=== PATIENT | female | born 1990 | race Caucasian/White ===

== ENCOUNTER 2019-04-01 10:25 | Observation (INO) ==
--- NOTE | 2019-04-01 10:37 | Emergency Department Note ---
ED Disposition Clinical Impression: Acute appendicitis Qualifiers: Acute appendicitis type: with localized peritonitis Appendicitis gangrene presence: without gangrene Appendicitis perforation presence: without perforation Appendicitis abscess presence: without abscess Qualified Code(s): K35.30 - Acute appendicitis with localized peritonitis, without perforation or gangrene Disposition: Still a Patient Condition on Discharge: Fair Referrals: Provider,Referral, [Primary Care Provider] - - Critical Care Critical Care Time: No Attestation: On , the high probability of a clinically significant, sudden or life threatening deterioration of the following system(s) required my full and direct attention, intervention and personal management. The time I documented below is in addition to time spent performing reported procedures but includes the following listed in this critical care notation. Medical Decision Making - Nathan Inquiry Pt receiving controlled substance: No Vital Signs: 04/01/19 10:34 Temperature 98.0 F Temperature Source Oral Pulse Rate [Right Radial] 71 Respiratory Rate 18 Blood Pressure [Right Arm] 135/72 Blood Pressure Mean [Right Arm] 93 Blood Pressure Source [Right Arm] Automatic Cuff Blood Pressure Position [Right Arm] Sitting 02 Sat by Pulse Oximetry 99 Oxygen Delivery Method Room Air - Lab Data Lab Results 04/01/19 10:55: Urine Color Yellow, Urine Appearance Clear, Urine pH 6.5, Ur Specific [place] 1.020, Urine Protein Negative, Urine Glucose (UA) Negative, Urine Ketones Negative, Urine Blood Trace-i, Urine Nitrate Negative, Urine Bilirubin Negative, Urine Urobilinogen 0.2, Ur Leukocyte Esterase Trace, Urine RBC Occasional, Urine WBC 5-10, Ur Squamous Epith Cells 3-5, Urine Bacteria 3+ 04/01/19 10:55: WBC 19.3 H, RBC 4.35, Hgb 13.2, Hct 37.9, MCV 87.2, MCH 30.2, MCHC 34.7, RDW 12.9, Plt Count 226, MPV 8.4, Neut % (Auto) 88.8 H, Lymph % (Auto) 5.9 L, [place] % (Auto) 5.0, Eos % (Auto) 0.2, Baso % (Auto) 0.1, Neut # (Auto) 17.1 H, Lymph # (Auto) 1.1, [place] # (Auto) 1.0, Eos # (Auto) 0.0, Baso # (Auto) 0.0, Total Counted 100, Neutrophils % (Manual) 90 H, Lymphocytes % (Manual) 9 L, Monocytes % (Manual) 1 L, Platelet Estimate Normal, RBC Morphology Normal 04/01/19 10:55: Sodium 139, Potassium 3.6, Chloride 102, Carbon Dioxide 26, Anion Gap 14.6, BUN 8, Creatinine 0.82, Estimated Creat Clear 119, Estimated GFR 84, Est GFR ( Amer) 102, Glucose 108 H, Calcium 8.8, Total Bilirubin 0.2, AST 11 L, ALT 15, Alkaline Phosphatase 74, Total Protein 7.5, Albumin 4.1, Globulin 3.4 H, Albumin/Globulin Ratio 1.2, Lipase 84 04/01/19 10:55: Serum HCG, Qual Negative Result diagrams: 04/01/19 10:55 04/01/19 10:55 Orders (Tests/Meds): ED MEDICATIONS Discontinued Medications Generic Name Dose Route Start Last Admin Trade Name Freq PRN Reason Stop Dose Admin Ioversol 75 ml 04/01/19 11:39 04/01/19 11:40 Rad-Optiray 350 100ml Vial IV 04/01/19 11:40 75 ml ONCE ONE Administration Protocol Morphine Sulfate 4 mg 04/01/19 12:15 Morphine 4mg/Ml Syringe IV 04/01/19 12:16 ONCE ONE Ondansetron HCl 4 mg 04/01/19 12:15 Zofran 4mg/2ml Vial IV 04/01/19 12:16 ONCE ONE Sodium Chloride 1,000 ml 04/01/19 10:46 04/01/19 11:03 Sod Chlor 0.9% 1000ml Bag IV 04/01/19 10:47 1,000 ml BOLUS ONE Administration Sodium Chloride 10 ml 04/01/19 11:39 04/01/19 11:40 Rad-Saline Flush 10ml Syringe IV 04/01/19 11:40 10 ml ONCE ONE Administration ORDERS Category Date Time Status Urine Culture Stat Micro 04/01/19 10:55 Received - CT Data CT Scan: Abdomen, Pelvis Time Received: 12:[address] Reviewed: Yes: I have viewed the radiologist's interpretation Findings Narrative: FINDINGS: Lung bases are clear. The liver, gallbladder, spleen, adrenal glands, and pancreas have an unremarkable appearance. There is mild thickening of the 2nd portion of the duodenum which is nonspecific and could be due to nondistention or mild duodenitis. A cluster of small stones is noted in the lower pole of the right kidney. In combination, the cluster measures 10 x 4 mm. There is cortical scarring peripheral to this cluster of stones. There is mild ectasia of the right renal collecting system and to lesser degree on the left but no definite ureteral calculus is evident. This could be related to patient's hydration status.. No ureteral calculi or no bladder calculi are apparent. There is mild distention of the proximal aspect of the appendix which is fluid-filled and measures up to 9 mm in diameter. The distal aspect of the appendix is also slightly prominent at 7 mm with questionable thickening of the wall and. There is some very minimal haziness of the periappendiceal fat. Cannot exclude the possibility of mild appendicitis. No abscess or perforation is evident. No pelvic mass or abnormal fluid collection is evident. No acute bony anomalies. IMPRESSION: Mild distention of the proximal aspect of the appendix which is fluid-filled and minimal prominence of the distal aspect of the appendix with minimal haziness of the periappendiceal fat. Mild or early acute appendicitis is a consideration. Please correlate with clinical parameters. No abscess or perforation. Dictated by: Fred Mckinney MD 04/01/2019 12:03 Electronically signed by Fred Mckinney MD in [place] 04/01/2019 12:03 - Physician Consults Physician Consulted: Manju Time: 12:21 Reason -: Surgical Eval/Care Comment/Response: he will come to ED to see patient General Adult HPI - General Stated complaint: stomach pain Time Seen by Provider: 04/01/19 10:37 - History of Present Illness HPI narrative: States that she awakened this morning at 6:45 AM, awakened by pain in her abdomen that was initially epigastric and burning but now has moved to her right lower quadrant. Had a little bit of back pain earlier, but that resolved. 2 episodes of vomiting, no diarrhea. No urinary symptoms. No fever. No previous similar pain. No history of abdominal surgeries. She has a Nexplanon implant, denies . - Related Data Home Medications Medication Instructions Recorded Confirmed etonogestrel 68 mg subdermal SUBDERMAL each 09/09/18 09/09/18 implant Allergies Allergy/AdvReac Type Severity Reaction Status Date / Time No Known Allergies Allergy Verified 09/09/18 09:47 [facility] History - Hepatitis A Screen Attestation statement:: This patient has been screened for Hepatitis A risk factors. I have reviewed the patient's past medical history: Yes Medical History: Denies:: Anxiety, Asthma, Depression - Social History Smoking Status: Former smoker Alcohol Intake: current Alcohol Intake Frequency:: holidays/special occasions only Substance Use Type: former substance user Occupational Status: unemployed - Psychiatric History Pschychiatric History:: Denies:: Anxiety, Depression ROS Obtained: Yes All systems reviewed & no additional complaints - Constitutional Constitutional: Denies fever(s) - Cardiovascular Cardiovascular: Denies chest pain - Respiratory Respiratory: No dyspnea - Gastrointestinal Gastrointestingal: Reports: abdominal pain, nausea, vomiting. Denies: diarrhea - Genitourinary Female Genitourinary: Denies difficulty voiding, Reports flank pain (resolved) Physical Exam - General General appearance: alert, in no apparent distress - Head Head exam: atraumatic, normocephalic - Eye Eye exam: Present: normal appearance, EOMI - ENT ENT exam: Present: mucous membranes moist - Neck Neck exam: Present: normal inspection, trachea midline - Chest Chest inspection: Present: normal inspection, symmetric chest wall rise - Respiratory Respiratory exam: Present: normal lung sounds bilaterally. Absent: respiratory distress - Cardiovascular Cardiovascular exam: Present: regular rate, normal rhythm, normal heart sounds - Abdominal Exam Abdominal exam: Present: soft, tenderness, normal bowel sounds, Rovsing's sign, tenderness at McBurney's Point. Absent: distention, guarding, rebound, rigidity Comment: generalized tenderness, most tender RLQ. - Extremities Exam Extremities exam: Present: normal inspection - Back Exam Back exam: Absent: CVA tenderness (R), CVA tenderness (L) - Neurological Exam Neurological exam: Present: alert, oriented X3 - Psychiatric Psychiatric exam: Present: normal affect, normal mood - Skin Skin exam: Present: warm, dry
[2019-04-01 11:01] LABS: Microscopic, Urine URINE MICROSCOPIC (MICROSCOPIC)
[2019-04-01 11:05] LABS: Basophils % 0.1 % (0.1-2.0); Eosinophils % 0.2 % (0.1-12.0); Hematocrit 37.9 % (37.0-47.0); Hemoglobin 13.2 g/dL (12.2-16.2); Lymphocytes # 1.1 K/mm3 (0.7-4.5); Lymphocytes % 5.9 % (10-50); Mean Corpuscular HGB Conc 34.7 g/dL (31.8-35.4); Mean Corpuscular Volume 87.2 fl (81-99); Mean Platelet Volume 8.4 fl (7.4-10.4); Neutrophils # 17.1 K/mm3 (1.8-7.8); Neutrophils % 88.8 % (37.0-80.0); Platelet Count 226 K/mm3 (142-424); Red Blood Count 4.35 M/mm3 (4.20-5.40); Red Cell Distribution Width 12.9 % (11.5-17.5); White Blood Count 19.3 K/mm3 (4.8-10.8)
[2019-04-01 11:07] LABS: Appearance,Urine CLEAR (Clear); Bilirubin,Urine Negative (Negative); Blood, Urine TRACE-I (Negative); Color,Urine YELLOW (Yellow); Glucose,Urine (UA) Negative (Negative); Ketones,Urine Negative (Negative); Leukocyte Esterase,Urine TRACE (Negative); PH,Urine 6.5 (5.0-8.5); Protein,Urine Negative (Negative); Urobilinogen,Urine 0.2 EU/dl (0.2)
[2019-04-01 11:15] LABS: Albumin Level 4.1 gm/dL (3.4-5.0); Albumin/Globulin Ratio 1.2 (1.1-1.8); Anion Gap 14.6 mEq/L (5-15); Bilirubin,Total 0.2 mg/dL (0.2-1.0); Calcium 8.8 mg/dL (8.5-10.1); Globulin 3.4 gm/dl (1.3-3.2); Total Protein,Serum 7.5 gm/dL (6.4-8.2)
[2019-04-01 11:22] LABS: Bacteria,Urine 3+ /lpf; RBC,Urine Occasional #/hpf (0-3)
[2019-04-01 11:26] LABS: Lymphocytes % 9 % (10-50); Monocytes % 1 % (2-9); Neutrophils % 90 % (42-76); RBC Morphology Normal; Total Cells Counted 100
--- NOTE | 2019-04-01 13:20 | History & Physical Report ---
HPI HPI: Chief complaint: Abdominal pain Patient is a pleasant 28-year-old white female who was in her usual state of health until approximately 6:45 AM this morning at which time she experienced onset of epigastric pain. She did have some associated nausea. Her pain localized to the right lower quadrant and was sharp and severe and worse with movement. She presented to the emergency department where she was seen and evaluated. She underwent CT scan which revealed findings consistent with acute appendicitis. [facility] History Medical History: Denies:: Anxiety, Asthma, Depression, Diabetes Mellitus Type 1, Diabetes Mellitus Type 2 *Have you ever received a pneumonia vaccine?: No *Have you received a flu vaccine this season?: No - *Social History Smoking Status: Current every day smoker Tobacco Type: e-cigarettes # Packs/Day (cigarettes): 0 Alcohol Intake: never Alcohol Intake Frequency:: holidays/special occasions only Substance Use Type: former substance user *Occupational Status:: unemployed *Travel in the last 8 weeks: None - Psychiatric History Pschychiatric History:: Denies:: Anxiety, Depression Family Hx:: No significant family history Review of Systems - Review of Systems Review of systems:: pertinent systems reviewed and negative unless documented below Meds Home Medications Medication Instructions Recorded Confirmed Type etonogestrel 68 mg subdermal SUBDERMAL each 09/09/18 09/09/18 History implant Allergies Allergy/AdvReac Type Severity Reaction Status Date / Time No Known Allergies Allergy Verified 09/09/18 09:47 Exam Vital signs and Labs for Last 24 Hours: Temp Pulse Resp BP Pulse Ox 98.0 F 78 18 152/72 H 98 04/01/19 12:56 04/01/19 12:56 04/01/19 12:56 04/01/19 12:56 04/01/19 12:27 Laboratory Results - last 24 hr 04/01/19 10:55: Urine Color Yellow, Urine Appearance Clear, Urine pH 6.5, Ur Specific [place] 1.020, Urine Protein Negative, Urine Glucose (UA) Negative, Urine Ketones Negative, Urine Blood Trace-i, Urine Nitrate Negative, Urine Bilirubin Negative, Urine Urobilinogen 0.2, Ur Leukocyte Esterase Trace, Urine RBC Occasional, Urine WBC 5-10, Ur Squamous Epith Cells 3-5, Urine Bacteria 3+ 04/01/19 10:55: WBC 19.3 H, RBC 4.35, Hgb 13.2, Hct 37.9, MCV 87.2, MCH 30.2, MCHC 34.7, RDW 12.9, Plt Count 226, MPV 8.4, Neut % (Auto) 88.8 H, Lymph % (Auto) 5.9 L, [place] % (Auto) 5.0, Eos % (Auto) 0.2, Baso % (Auto) 0.1, Neut # (Auto) 17.1 H, Lymph # (Auto) 1.1, [place] # (Auto) 1.0, Eos # (Auto) 0.0, Baso # (Auto) 0.0, Total Counted 100, Neutrophils % (Manual) 90 H, Lymphocytes % (Manual) 9 L, Monocytes % (Manual) 1 L, Platelet Estimate Normal, RBC Morphology Normal 04/01/19 10:55: Sodium 139, Potassium 3.6, Chloride 102, Carbon Dioxide 26, Anion Gap 14.6, BUN 8, Creatinine 0.82, Estimated Creat Clear 119, Estimated GFR 84, Est GFR ( Amer) 102, Glucose 108 H, Calcium 8.8, Total Bilirubin 0.2, AST 11 L, ALT 15, Alkaline Phosphatase 74, Total Protein 7.5, Albumin 4.1, Globulin 3.4 H, Albumin/Globulin Ratio 1.2, Lipase 84 04/01/19 10:55: Serum HCG, Qual Negative I & O for Last 24 hours: Intake & Output 03/30/19 03/31/19 04/01/19 04/02/19 11:59 11:59 11:59 11:59 Intake Total 1000 / 1000 Balance 1000 / 1000 Weight 160 lb - *Routine HEENT Exam Head: Present: normocephalic Eye: Present: EOMI, PERRL ENT: Present: mucous membranes moist - *Routine Neck Exam Present: supple. Absent: lymphadenopathy - *Routine Respiratory Exam Present: CTA bilaterally - *Routine Cardiovascular Exam Present: RRR - *Routine Abdominal Exam Present: soft, normoactive bowel sounds, tenderness Comments: She has tenderness with some voluntary guarding in the right lower quadrant - *Routine Extremities Exam Absent: cyanosis, clubbing, edema - *Routine Skin Exam Present: warm. Absent: rash - *Routine Neurological Exam Present: alert, oriented X3 - Detailed Eye Exam Eyelids: Left normal inspection Results - Results Lab Results Last 24 Hours:: Laboratory Results - last 24 hr 04/01/19 10:55: Urine Color Yellow, Urine Appearance Clear, Urine pH 6.5, Ur Specific [place] 1.020, Urine Protein Negative, Urine Glucose (UA) Negative, Urine Ketones Negative, Urine Blood Trace-i, Urine Nitrate Negative, Urine Bilirubin Negative, Urine Urobilinogen 0.2, Ur Leukocyte Esterase Trace, Urine RBC Occasional, Urine WBC 5-10, Ur Squamous Epith Cells 3-5, Urine Bacteria 3+ 04/01/19 10:55: WBC 19.3 H, RBC 4.35, Hgb 13.2, Hct 37.9, MCV 87.2, MCH 30.2, MCHC 34.7, RDW 12.9, Plt Count 226, MPV 8.4, Neut % (Auto) 88.8 H, Lymph % (Auto) 5.9 L, [place] % (Auto) 5.0, Eos % (Auto) 0.2, Baso % (Auto) 0.1, Neut # (Auto) 17.1 H, Lymph # (Auto) 1.1, [place] # (Auto) 1.0, Eos # (Auto) 0.0, Baso # (Auto) 0.0, Total Counted 100, Neutrophils % (Manual) 90 H, Lymphocytes % (Manual) 9 L, Monocytes % (Manual) 1 L, Platelet Estimate Normal, RBC Morphology Normal 04/01/19 10:55: Sodium 139, Potassium 3.6, Chloride 102, Carbon Dioxide 26, Anion Gap 14.6, BUN 8, Creatinine 0.82, Estimated Creat Clear 119, Estimated GFR 84, Est GFR ( Amer) 102, Glucose 108 H, Calcium 8.8, Total Bilirubin 0.2, AST 11 L, ALT 15, Alkaline Phosphatase 74, Total Protein 7.5, Albumin 4.1, Globulin 3.4 H, Albumin/Globulin Ratio 1.2, Lipase 84 04/01/19 10:55: Serum HCG, Qual Negative Assessment and Plan - Assessment and plan all Dx Assessment and Plan for all problems:: Plan to make arrangements for urgent appendectomy.
--- NOTE | 2019-04-01 14:49 | Operative Note ---
Date of procedure: 04/01/19 Pre-op Diagnosis:: Acute appendicitis Post-op Diagnosis:: Same Procedure performed:: Laparoscopic appendectomy Surgeon:: Mono Nunes MD AUTOMATION TECHNOLOGIST:: Solitario Serra Anesthesia: YESSI Estimated blood loss (mL): 15 Clinical Note:: Patient is a pleasant 28-year-old white female who was in her usual state of health until approximately 6:45 AM this morning at which time she experienced onset of epigastric pain. She did have some associated nausea. Her pain localized to the right lower quadrant and was sharp and severe and worse with movement. She presented to the emergency department where she was seen and evaluated. She underwent CT scan which revealed findings consistent with acute appendicitis. Operative findings:: She had an acutely inflamed indurated but nonsuppurative appendicitis. The terminal ileum was chronically adherent to the mesoappendix. Operative note:: Consent was obtained and patient was taken to the operating room. She was given preoperative intravenous antibiotics. In the operating room she was placed in a supine position. General anesthesia was induced via endotracheal tube. Cleary catheter was placed. Her abdomen was prepped and draped in the standard surgical fashion. Subumbilical skin incision was made and while performing a bdominal wall lift Veress needle was inserted. CO2 pneumoperitoneum was achieved to 15 mmHg. 12 mm optical trocar was inserted at the umbilicus. Intraperitoneal contents were visualized. 5 mm trocar was inserted in the suprapubic location. Additional 5 mm trocar was inserted in the right upper abdomen. She was positioned in the left side down. Appendix was identified. It was grasped with an endoscopic Jacklyn. The appendix was moderately inflamed characterized by induration and thickening with some erythema. Terminal ileum was somewhat adherent to the mesoappendix. Careful dissection was carried out dividing the mesoappendix with care taken to coagulate the appendiceal artery in the process. Meticulous care was taken when dissecting the adherent to terminal ileum from the mesoappendix. Dissection was carried down to the appendiceal base which was relatively uninflamed. Appendix was divided at its base with an endoscopic FRANCISCO linear cutting stapling device. The appendix was placed within an Endo Catch retrieval device and removed from the peritoneal cavity via the umbilical trocar site. Limited irrigation was carried out of the pericecal region and pelvis. There was good hemostasis. Trochars were then removed as CO2 pneumoperitoneum was evacuated. Fascia at the umbilicus was closed with 0 Vicryl [id number] suture. Local anesthetic was infiltrated. Skin i ncisions were closed with 4-0 Monocryl in a subcuticular fashion. Steri-Strips and dressings were applied. Condition: stable Disposition: PACU Specimens:: Appendix Complications:: None immediately apparent
--- NOTE | 2019-04-01 15:00 | Progress Note ---
[facility] Anesthesia Checklist - Patient Identification Patient Identification: Arm Band, Verbal (Name & ) - Structural Data Admitted From: Emergency Dept Planned Operative Procedure/s: lap appy Consent for Planned Operative Procedure(s) Verified: Yes Verified Documents: History and Physical - NPO Status Verified Time NPO: 00:00 - Additional verifications Patient : No Anesthesia Reactions: No Hx Blood Transfusions: No Blood Transfusion Reaction: No Cephalosporin Allergy: No Previous Colonoscopy: No - Cardiovascular Assessment Heart Sounds: S1 & S2 Pulse Strength: Baseline Pulse Rhythm: Regular Peripheral Edema: No - Airway Assessment C-Spine Mobility Assessed: Yes TMJ Mobility Assessed: Yes Dentition: Good Dentition - Neurological Assessment Level of Consciousness: Awake, Alert, Appropriate Hx Seizures: No Numbness or tingling in extremities: No - Anesthesia Plan Anesthesia Risk discussed: Yes ASA Class: II Anesthesia Type: General [facility] History Medical History: Denies:: Anxiety, Asthma, Depression, Diabetes Mellitus Type 1, Diabetes Mellitus Type 2 *Have you ever received a pneumonia vaccine?: No *Have you received a flu vaccine this season?: No Anesthesia experience/problems:: none - *Social History Smoking Status: Current every day smoker Tobacco Type: e-cigarettes # Packs/Day (cigarettes): 0 Alcohol Intake: never Alcohol Intake Frequency:: holidays/special occasions only Substance Use Type: former substance user *Occupational Status:: unemployed *Travel in the last 8 weeks: None - Psychiatric History Pschychiatric History:: Denies:: Anxiety, Depression Family Hx:: No significant family history
--- NOTE | 2019-04-01 15:01 | Progress Note ---
[facility] Anesthesia Record Part I Intake, IV Amount: 400 Estimated blood loss (mL): 10 Urine output (mL): 150 Blood Products used (#): none Blood Pressure: 132/95 SaO2: 100 Pulse Rate: 75 Respiratory Rate: 20 Temperature: 97.4 F Patient is:: Awake, Stable Stable to PACU at:: 14:57
--- NOTE | 2019-04-01 15:02 | Progress Note ---
[facility] Anesthesia Record Part II Discharge Time: 15:27 Destination: Medical Surgical Department PACU nurse assessment reviewed?: Yes Patient Condition:: Good Anesthesia Complications:: None Swallowing reflex intact?: Yes Cyanosis?: No
[2019-04-02 06:23] LABS: Basophils % 0.1 % (0.1-2.0); Hematocrit 33.2 % (37.0-47.0); Lymphocytes # 1.9 K/mm3 (0.7-4.5); Lymphocytes % 15.4 % (10-50); Mean Corpuscular HGB Conc 33.7 g/dL (31.8-35.4); Mean Corpuscular Volume 88.8 fl (81-99); Mean Platelet Volume 8.6 fl (7.4-10.4); Monocytes # 0.7 K/mm3 (0.1-1.0); Monocytes % 6.2 % (1.7-9.3); Neutrophils # 9.3 K/mm3 (1.8-7.8); Neutrophils % 78.1 % (37.0-80.0); Platelet Count 183 K/mm3 (142-424); Red Blood Count 3.74 M/mm3 (4.20-5.40); Red Cell Distribution Width 12.7 % (11.5-17.5); White Blood Count 11.9 K/mm3 (4.8-10.8)
--- NOTE | 2019-04-02 06:54 | Progress Note ---
Subjective Patient reports: feels better Exam Vital signs and Labs for Last 24 Hours: Temp Pulse Resp BP Pulse Ox 98.2 F 71 16 109/60 L 96 04/02/19 04:27 04/02/19 04:27 04/02/19 04:27 04/02/19 04:27 04/02/19 04:27 Laboratory Results - last 24 hr 04/01/19 10:55: Urine Color Yellow, Urine Appearance Clear, Urine pH 6.5, Ur Specific [place] 1.020, Urine Protein Negative, Urine Glucose (UA) Negative, Urine Ketones Negative, Urine Blood Trace-i, Urine Nitrate Negative, Urine Bilirubin Negative, Urine Urobilinogen 0.2, Ur Leukocyte Esterase Trace, Urine RBC Occasional, Urine WBC 5-10, Ur Squamous Epith Cells 3-5, Urine Bacteria 3+ 04/01/19 10:55: WBC 19.3 H, RBC 4.35, Hgb 13.2, Hct 37.9, MCV 87.2, MCH 30.2, MCHC 34.7, RDW 12.9, Plt Count 226, MPV 8.4, Neut % (Auto) 88.8 H, Lymph % (Auto ) 5.9 L, [place] % (Auto) 5.0, Eos % (Auto) 0.2, Baso % (Auto) 0.1, Neut # (Auto) 17.1 H, Lymph # (Auto) 1.1, [place] # (Auto) 1.0, Eos # (Auto) 0.0, Baso # (Auto) 0.0, Total Counted 100, Neutrophils % (Manual) 90 H, Lymphocytes % (Manual) 9 L, Monocytes % (Manual) 1 L, Platelet Estimate Normal, RBC Morphology Normal 04/01/19 10:55: Sodium 139, Potassium 3.6, Chloride 102, Carbon Dioxide 26, Anion Gap 14.6, BUN 8, Creatinine 0.82, Estimated Creat Clear 119, Estimated GFR 84, Est GFR ( Amer) 102, Glucose 108 H, Calcium 8.8, Total Bilirubin 0.2, AST 11 L, ALT 15, Alkaline Phosphatase 74, Total Protein 7.5, Albumin 4.1, Globulin 3.4 H, Albumin/Globulin Ratio 1.2, Lipase 84 04/01/19 10:55: Serum HCG, Qual Negative 04/01/19 14:00: Urine Color Yellow, Urine Appearance Clear, Urine pH 5.5, Ur Specific [place] 1.010, Urine Protein Negative, Urine Glucose (UA) Negative, Urine Ketones Negative, Urine Blood Negative, Urine Nitrate Negative, Urine Bilirubin Negative, Urine Urobilinogen 0.2, Ur Leukocyte Esterase Negative, Urine WBC Occasional, Ur Squamous Epith Cells Occasional, Urine Bacteria Trace 04/02/19 05:52: WBC 11.9 H D, RBC 3.74 L, Hct 33.2 L, MCV 88.8, MCH 30.0, MCHC 33.7, RDW 12.7, Plt Count 183, MPV 8.6, Neut % (Auto) 78.1, Lymph % (Auto) 15.4, [place] % (Auto) 6.2, Eos % (Auto) 0.0 L, Baso % (Auto) 0.1, Neut # (Auto) 9.3 H, Lymph # (Auto) 1.9, [place] # (Auto) 0.7, Eos # (Auto) 0.0, Baso # (Auto) 0.0 I & O for Last 24 hours: Intake & Output 03/30/19 03/31/19 04/01/19 04/02/19 11:59 11:59 11:59 11:59 Intake Total 5300 / 5300 Balance 5300 / 5300 Weight 160 lb 168 lb - Constitutional no acute distress - *Routine Respiratory Exam Absent: respiratory distress - *Routine Cardiovascular Exam Present: RRR - *Routine Abdominal Exam Present: soft Comments: Dressings intact. No spreading cellulitis. Progress Note: A&P (1) Acute appendicitis Status: Acute Assessment and plan: Overall, doing well status post laparoscopic appendectomy. Discharge home with outpatient follow-up Slowly advance diet at home Current Visit: Yes
--- NOTE | 2019-04-02 06:55 | Discharge Summary ---
General - General Admission date:: 04/01/19 Discharge date: 04/02/19 HPI HPI: Patient is a pleasant 28-year-old white female who was in her usual state of health until approximately 6:45 AM this morning at which time she experienced onset of epigastric pain. She did have some associated nausea. Her pain localized to the right lower quadrant and was sharp and severe and worse with movement. She presented to the emergency department where she was seen and evaluated. She underwent CT scan which revealed findings consistent with acute appendicitis. Hospital Course Hospital Course: She underwent laparoscopic appendectomy with confirmation of acute appendicitis. Please see operative report for detail. Postoperatively, she convalesced well and remained afebrile with stable and normal vital signs. On the morning of postoperative day 1 she was tolerating slow advancement of her diet and ambulating without difficulty. She was deemed appropriate for discharge home with outpatient follow-up. Objective Vital signs: Temp Pulse Resp BP Pulse Ox 98.2 F 71 16 109/60 L 96 04/02/19 04:27 04/02/19 04:27 04/02/19 04:27 04/02/19 04:27 04/02/19 04:27 no acute distress - *Routine HEENT Exam Head: Present: normocephalic, atraumatic - *Routine Neck Exam Present: full ROM - Routine Chest/Breast/Axilla Exam Chest wall: Absent: tenderness - *Routine Respiratory Exam Absent: respiratory distress - *Routine Cardiovascular Exam Present: RRR - *Routine Abdominal Exam Present: soft - *Routine Extremities Exam Present: full ROM. Absent: cyanosis, clubbing, edema - Routine Back/Spine/Pelvis Exam Back/Spine: Present: full ROM - *Routine Skin Exam Absent: cyanosis, erythema - *Routine Neurological Exam Present: alert, oriented X3 - Routine Psychiatric Exam Present: normal affect Results Labs on day of discharge: Labs from last 24 hours 04/02/19 04/01/19 04/01/19 05:52 14:00 10:55 WBC 11.9 H D RBC 3.74 L Hgb Hct 33.2 L MCV 88.8 MCH 30.0 MCHC 33.7 RDW 12.7 Plt Count 183 MPV 8.6 Neut % (Auto) 78.1 Lymph % (Auto) 15.4 [place] % (Auto) 6.2 Eos % (Auto) 0.0 L Baso % (Auto) 0.1 Neut # (Auto) 9.3 H Lymph # (Auto) 1.9 [place] # (Auto) 0.7 Eos # (Auto) 0.0 Baso # (Auto) 0.0 Total Counted Neutrophils % (Manual) Lymphocytes % (Manual) Monocytes % (Manual) Platelet Estimate RBC Morphology Sodium Potassium Chloride Carbon Dioxide Anion Gap BUN Creatinine Estimated Creat Clear Estimated GFR Est GFR ( Amer) Glucose Calcium Total Bilirubin AST ALT Alkaline Phosphatase Total Protein Albumin Globulin Albumin/Globulin Ratio Lipase Serum HCG, Qual Negative Urine Color Yellow Urine Appearance Clear Urine pH 5.5 Ur Specific [place] 1.010 Urine Protein Negative Urine Glucose (UA) Negative Urine Ketones Negative Urine Blood Negative Urine Nitrate Negative Urine Bilirubin Negative Urine Urobilinogen 0.2 Ur Leukocyte Esterase Negative Urine RBC Urine WBC Occasional Ur Squamous Epith Cells Occasional Urine Bacteria Trace 04/01/19 04/01/19 04/01/19 10:55 10:55 10:55 WBC 19.3 H RBC 4.35 Hgb 13.2 Hct 37.9 MCV 87.2 MCH 30.2 MCHC 34.7 RDW 12.9 Plt Count 226 MPV 8.4 Neut % (Auto) 88.8 H Lymph % (Auto) 5.9 L [place] % (Auto) 5.0 Eos % (Auto) 0.2 Baso % (Auto) 0.1 Neut # (Auto) 17.1 H Lymph # (Auto) 1.1 [place] # (Auto) 1.0 Eos # (Auto) 0.0 Baso # (Auto) 0.0 Total Counted 100 Neutrophils % (Manual) 90 H Lymphocytes % (Manual) 9 L Monocytes % (Manual) 1 L Platelet Estimate Normal RBC Morphology Normal Sodium 139 Potassium 3.6 Chloride 102 Carbon Dioxide 26 Anion Gap 14.6 BUN 8 Creatinine 0.82 Estimated Creat Clear 119 Estimated GFR 84 Est GFR ( Amer) 102 Glucose 108 H Calcium 8.8 Total Bilirubin 0.2 AST 11 L ALT 15 Alkaline Phosphatase 74 Total Protein 7.5 Albumin 4.1 Globulin 3.4 H Albumin/Globulin Ratio 1.2 Lipase 84 Serum HCG, Qual Urine Color Yellow Urine Appearance Clear Urine pH 6.5 Ur Specific [place] 1.020 Urine Protein Negative Urine Glucose (UA) Negative Urine Ketones Negative Urine Blood Trace-i Urine Nitrate Negative Urine Bilirubin Negative Urine Urobilinogen 0.2 Ur Leukocyte Esterase Trace Urine RBC Occasional Urine WBC 5-10 Ur Squamous Epith Cells 3-5 Urine Bacteria 3+ DS: Diagnosis - Discharge Diagnosis (1) Acute appendicitis Status: Acute Discharge Plan - Patient Discharge Instructions ACTIVITY: No heavy lifting DIET: advance to your usual diet Patient Instructions: DI for Appendicitis -- Adult, DI for Acute Abdomen, DI for Surgical Site Infection, Appendectomy -- Laparoscopic Surgery - Follow up Plan Follow up with: Mono Nunes MD [Staff Physician] - (1-2 weeks) Provider,MD Kimmy [Primary Care Provider] - Home Medications: Home Medications Medication Instructions Recorded Confirmed Type etonogestrel 68 mg subdermal 1 each SUBDERMAL DIRECTED each 09/09/18 04/01/19 History implant Prescriptions/Medication Reconciliation: Continued etonogestrel 68 mg subdermal implant 1 each SUBDERMAL DIRECTED each - Problem Reconciliation Problems Reviewed?: Yes
[2019-04-02 07:05] LABS: Hemoglobin 11.3 g/dL (12.2-16.2)
== END 2019-04-02 09:35 | disposition home or self-care (01) ==
LOC: ER 10:25 → 2ND 12:56 → SDC 12:56 → 2ND 16:00
PROVIDERS: ADMIT Surgery; ATTEND Surgery
DX: K35.890 Other acute appendicitis without perforation or gangrene
CPT/HCPCS: 36415; 74177; 80053; 81001; 83690; 84703; 85007; 85025; 87086; 87088; 87186; 88304; 96365; 96375; 99284; G0378; J0131; J2405; J2710; Q9967